=== PATIENT | female | born 1935 | race Two or more races ===

== ENCOUNTER 2019-02-04 13:19 | Inpatient (IN) | payer MEDICARE, OTHER ==
[~2019-02-04] VITALS: Ht 157.5 cm; Wt 72.6 kg
[2019-02-04 14:26] VITALS: BP 152/68
[2019-02-04] MEDS ORDERED: DIOVAN HCT 1601 EACH ORAL (14:41)
[2019-02-04] MEDS ORDERED: CAPTOPRIL25 M1 PO (14:41)
[2019-02-04] MEDS ORDERED: SINGULAIR10 MG ORAL (14:41)
[2019-02-04] MEDS ORDERED: ADVAIR 500-501 EACH INH (14:41)
[2019-02-04] MEDS ORDERED: ATORVASTATIN CA10 MG ORAL (14:41)
[2019-02-04] MEDS ORDERED: CLONAZEPAM1 MG PO (14:41)
[2019-02-04] MEDS ORDERED: NORVASC5 MG ORAL (14:41)
[2019-02-04] MEDS ORDERED: Captopril 12.5mg tab ORAL PRN (15:00)
[2019-02-04] MEDS: Albuterol/Ipratropium 3ml neb HHN SCH ×3 (15:41→23:50)
[2019-02-04 16:00] VITALS: BP 159/73
[2019-02-04] MEDS ORDERED: Fleet's Enema 133ml RECTAL SCH (16:00)
[2019-02-04] MEDS ORDERED: Captopril 25mg tab ORAL PRN (16:00)
[2019-02-04] MEDS: Montelukast 10mg tablet ORAL SCH ×2 (16:04→16:16)
--- NOTE | 2019-02-04 16:16 | NUR ---
NURSE NOTES: Patient refused to take Singulair after I opened the medication and prepared it. Medication wasted witnessed by Charge Nurse, Becka.
[2019-02-04] MEDS: NovoLOG Insulin Flexpen SUBQ SCH ×2 (16:30→20:47)
[2019-02-04] MEDS: cefTRIAXone 1 GM in D5W 55 ML IVPB SCH (16:30)
--- NOTE | 2019-02-04 16:39 | NUR ---
CASE MANAGEMENT: INITIAL REVIEW 83 YO F PRESENTED TO OUR ED PMHx: HTN. ASTHMA. HLD. SI:ASTHMA EXACERBATION. T 98.1 HR 68 RR 17 B/P 152/68 SATS 95% ON 2L/NC NO LABS TODAY IS: SOLU MEDROL IV Q12H LIPITOR PO QHS NORVASC PO BID PROTONIX IV QD KLONOPIN PO QD INSULIN ASPART SUBQ AC/HS CEFTRIAXONE IV Q24H SINGULAIR PO QPM MED/SURG STATUS DCP: PATIENT TO BE DISCHARGE TO APPROPRIATE LOCATION ONCE MEDICALLY CLEARED. PLAN OF CARE: CXR Addendum: 02/04/19 at 1745 by Mayuri Friedman CM INTERQUAL MET
--- NOTE | 2019-02-04 19:40 | NUR ---
HAND-OFF: Report given to LIBBY Santamaria.
--- NOTE | 2019-02-04 19:59 | NUR ---
NURSE NOTES: Received patient just coming out of the bathroom, helped back to bed, able to verbalize needs, no c/o of pain at this time, no s/s of acute distress. IV site asymptomatic, on saline lock. Bed on lowest position, call light within reach, 2 side rails up.
[2019-02-04 20:00] VITALS: BP 144/76
[2019-02-04 20:04] LABS: BASOPHILS % (AUTO) 0.4 % (0.0-2.0); EOSINOPHILS % (AUTO) 0.6 % (0.0-3.0); HEMATOCRIT 34.2 % (37.0-47.0); HEMOGLOBIN 11.4 G/DL (12.0-16.0); MEAN CORPUSCULAR VOLUME 88 FL (80-99); MONOCYTES % (AUTO) 8.3 % (1.0-10.0); NEUTROPHILS % (AUTO) 73.8 % (45.0-75.0); PLATELET COUNT 180 K/UL (150-450); RED CELL DISTRIBUTION WIDTH 12.9 % (11.6-14.8); WHITE BLOOD COUNT 6.6 K/UL (4.8-10.8)
[2019-02-04 20:20] LABS: ANION GAP 14 mmol/L (5-15); BLOOD UREA NITROGEN 15 mg/dL (7-18); CALCIUM 8.9 MG/DL (8.5-10.1); CARBON DIOXIDE 24 MMOL/L (21-32); CHLORIDE 94 MMOL/L (98-107); POTASSIUM 2.8 MMOL/L (3.5-5.1); SODIUM 132 MMOL/L (136-145)
[2019-02-04] MEDS: Zolpidem 5mg tab ORAL PRN ×2 (20:36→20:46)
[2019-02-04] MEDS: Heparin 5000 units/ml inj SUBQ SCH (20:46)
[2019-02-04] MEDS: Solu-MEDROL 125mg Inj IVP SCH (20:46)
[2019-02-04] MEDS: Wixela 250/50 Inhaler - 60 dose INH SCH (22:00)
[2019-02-05] MEDS: Albuterol/Ipratropium 3ml neb HHN SCH ×6 (02:58→23:03)
[2019-02-05] MEDS: NovoLOG Insulin Flexpen SUBQ SCH ×4 (06:00→20:49)
--- NOTE | 2019-02-05 07:21 | NUR ---
HAND-OFF: Report given to LIBBY Starr.
--- NOTE | 2019-02-05 07:23 | NUR ---
NURSE NOTES: Patient alert x4, on nasal cannula 2 liter, no sign of distress and shortness of breath; no sign of chest pain; IV-LAC patent, flushes well; bed at lowest position, side rials up x2, call light within reach; will keep monitoring.
--- NOTE | 2019-02-05 07:41 | NUR ---
NURSE NOTES: MD Burns notified patient's Na 132; waiting for order.
[2019-02-05 08:05] VITALS: BP 145/55
[2019-02-05] MEDS: Heparin 5000 units/ml inj SUBQ SCH ×2 (08:26→20:49)
[2019-02-05] MEDS: Solu-MEDROL 125mg Inj IVP SCH ×4 (08:31→20:56)
[2019-02-05] MEDS: Pantoprazole Inj IVP SCH (08:31)
[2019-02-05] MEDS: Wixela 250/50 Inhaler - 60 dose INH SCH ×2 (10:08→22:00)
[2019-02-05 12:00] VITALS: BP 116/55
--- NOTE | 2019-02-05 15:01 | History and Physical Report ---
DATE OF ADMISSION: 02/04/2019 REASON FOR ADMISSION: Shortness of breath, asthma exacerbation, respiratory infection. HISTORY: This is an 83-year-old female, presented to my office with shortness of breath, difficulty with breathing. The patient was given Decadron and albuterol in the office as well the chest x-ray, but did not improve. The patient now admitted for IV antibiotics and further respiratory management. The patient with cough, difficult to mobilize, congestion over the past several days. The patient refusing any type of IV steroids at this time due to concern of elevation in sugar. The patient's events worsening overall. Low-grade fevers noted. No ill contacts noted. PAST MEDICAL HISTORY: Notable for hypertension, asthma, hypercholesterolemia, advanced age, chronic cough, chronic debility, osteoporosis. MEDICATIONS: Reviewed. ALLERGIES: Reviewed. SOCIAL HISTORY: Nonsmoker and nondrinker. The patient does have a caregiver. REVIEW OF SYSTEMS: All 10 points reviewed. The patient is using walker and she is at risk for falling. No other significant findings with the exception of the above. PHYSICAL EXAMINATION: GENERAL: A well-developed female, comfortable, alert. VITAL SIGNS: Blood pressure 145/55, pulse 86, respirations 14, sats 99%. HEENT: Fairly negative. Extraocular movements are grossly intact. NECK: Supple. LUNGS: With moderate breath sounds. Scattered wheezes and rhonchi. CARDIAC: S1 and S2. Regular rate and rhythm without murmurs, rubs, gallops. ABDOMEN: Soft, nontender, nondistended. EXTREMITIES: With trace edema. No cyanosis or clubbing. NEUROLOGICAL: Grossly the same. LABORATORY DATA: Reviewed. Sodium 132, potassium 2.8. Hemoglobin A1c 6.3. Blood sugar is 120. White count 6.6, hematocrit 34, platelets of 180. IMPRESSION: 1. Respiratory infection, underlying bronchitis. No clear evidence of pneumonia. 2. Acute bronchospasm. 3. Asthma. 4. Hypertension. 5. Borderline diabetes. RECOMMENDATIONS: 1. Supportive care. 2. IV antibiotics. 3. Refusing IV steroids. 4. Oxygen therapy as needed. 5. We will follow and optimize and discharge the patient when stable. Mayur Burns M.D. DR: MASON JOB#: [id number] CC:
[2019-02-05 16:00] VITALS: BP 163/69
[2019-02-05] MEDS: Montelukast 10mg tablet ORAL SCH (17:04)
[2019-02-05] MEDS: cefTRIAXone 1 GM in D5W 55 ML IVPB SCH (17:04)
--- NOTE | 2019-02-05 19:37 | NUR ---
HAND-OFF: Report given to LIBBY Mccarthy.
--- NOTE | 2019-02-05 19:38 | NUR ---
NURSE NOTES: Received patient in no apparent distress. A&OX4, forgetful. IV site patent and intact. Bed in lowest position. Call light within reach. Will continue to monitor.
[2019-02-05 20:00] VITALS: BP 165/88
[2019-02-05] MEDS: Zolpidem 5mg tab ORAL PRN (20:47)
[2019-02-05] MEDS: Milk of Magnesia 30ml Ud ORAL PRN (20:47)
[2019-02-06] MEDS: Albuterol/Ipratropium 3ml neb HHN SCH ×6 (03:00→23:16)
[2019-02-06] MEDS: NovoLOG Insulin Flexpen SUBQ SCH ×4 (06:30→20:11)
--- NOTE | 2019-02-06 07:30 | NUR ---
HAND-OFF: Report given to Mani SOUZA.
[2019-02-06 08:00] VITALS: BP 125/69
--- NOTE | 2019-02-06 08:30 | NUR ---
NURSE NOTES: Received patient in bed , no sign respiratory distress. patient AOX3, ambulatory using a walker. IV site patent and intact. Bed in lowest position. Call light within reach. Will continue to monitor. benson matthew
[2019-02-06] MEDS: Wixela 250/50 Inhaler - 60 dose INH SCH ×2 (08:54→20:24)
[2019-02-06] MEDS: Solu-MEDROL 125mg Inj IVP SCH ×2 (09:00→19:46)
[2019-02-06] MEDS: Pantoprazole Inj IVP SCH (09:25)
[2019-02-06] MEDS: Heparin 5000 units/ml inj SUBQ SCH ×2 (09:29→21:20)
--- NOTE | 2019-02-06 10:30 | NUR ---
RADIOLOGY DEPT CHEST X-RAY DONE.-P.DYE
[2019-02-06] MEDS: Guaifenesin/DM 10ml syrup ORAL PRN (10:38)
--- NOTE | 2019-02-06 10:47 | Diagnostic Imaging Report ---
Indication: Shortness of breath Technique: One view of the chest Comparison: none Findings: No acute infiltrates, effusions, or congestion. Tortuous calcified aorta. Normal heart size. Upper mediastinum unremarkable. No significant interim change Impression: No acute process.
[2019-02-06 12:00] VITALS: BP 121/63
[2019-02-06 15:53] VITALS: BP 175/67
[2019-02-06] MEDS: Montelukast 10mg tablet ORAL SCH (16:31)
[2019-02-06] MEDS: cefTRIAXone 1 GM in D5W 55 ML IVPB SCH (16:31)
--- NOTE | 2019-02-06 17:14 | Physician Query ---
--THIS DOCUMENT IS A PERMANENT PART OF THE MEDICAL RECORD -- PLEASE COMPLETE DOCUMENT BEFORE SIGNING Dear Dr. 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 Physician signature Date MTDD
--- NOTE | 2019-02-06 17:49 | General Progress Note ---
Assessment/Plan Assessment/Plan IMPRESSION: 1. Respiratory infection, underlying bronchitis. No clear evidence of pneumonia. 2. Acute bronchospasm. 3. Asthma. 4. Hypertension. 5. Borderline diabetes. PLAN cxr negative still refusing solumedrol wants only antibiotics continue same will follow up impression, plan, and exam edited and reviewed in detail care discussed with RN Subjective Allergies: Coded Allergies: NO KNOWN ALLERGIES (Verified Allergy, Unknown, 02/04/19) Subjective still with sob refusing solumedrol Objective Last 24 Hour Vital Signs Date Time Temp Pulse Resp B/P (MAP) Pulse Ox O2 Delivery O2 Flow Rate FiO2 02/06/19 17:30 83 175/67 02/06/19 15:53 97.7 83 20 175/67 (103) 99 02/06/19 15:48 84 20 99 Room Air 21 02/06/19 15:40 88 20 98 Room Air 21 02/06/19 12:00 97.0 81 20 121/63 (82) 99 02/06/19 11:28 Room Air 21 02/06/19 11:28 Room Air 21 02/06/19 09:25 87 125/69 02/06/19 08:56 87 20 99 Room Air 21 02/06/19 08:54 Room Air 21 02/06/19 08:54 Room Air 21 02/06/19 08:50 84 14 99 Room Air 21 02/06/19 08:30 Nasal Cannula 2.0 02/06/19 08:00 96.8 82 20 125/69 (87) 99 02/06/19 07:14 Room Air 02/06/19 07:14 Room Air 21 02/06/19 04:00 19 02/06/19 03:09 Room Air 02/06/19 03:09 Room Air 02/06/19 00:00 19 02/05/19 23:08 90 18 98 Room Air 21 02/05/19 23:01 88 18 96 Room Air 21 02/05/19 22:09 Room Air 02/05/19 22:07 Room Air 02/05/19 21:00 Nasal Cannula 2.0 02/05/19 20:36 88 18 98 Room Air 21 02/05/19 20:15 91 20 97 Room Air 21 02/05/19 20:00 97.6 106 20 165/88 (113) 99 Intake and Output 02/05/19 02/06/19 19:00 07:00 Intake Total 250 ml 480 ml Output Total 100 ml Balance 150 ml 480 ml Intake Oral 250 ml 480 ml Output Urine Total 100 ml # Voids 4 3 Height (Feet): 5 Height (Inches): 2.00 Weight (Pounds): 160 Objective GENERAL: A well-developed female, comfortable, alert. HEENT: Fairly negative. Extraocular movements are grossly intact. NECK: Supple. LUNGS: With moderate breath sounds. Scattered wheezes and rhonchi. CARDIAC: S1 and S2. Regular rate and rhythm without murmurs, rubs, gallops. ABDOMEN: Soft, nontender, nondistended. EXTREMITIES: With trace edema. No cyanosis or clubbing. NEUROLOGICAL: Grossly the same. Mayur Burns MD Feb 06, 2019 17:49
--- NOTE | 2019-02-06 19:32 | NUR ---
HAND-OFF: Report given to Ms. Christiano RN.
[2019-02-06 20:09] VITALS: BP 148/64
[2019-02-06] MEDS: Zolpidem 5mg tab ORAL PRN (21:19)
[2019-02-06] MEDS: Milk of Magnesia 30ml Ud ORAL PRN (21:19)
--- NOTE | 2019-02-06 22:53 | NUR ---
NURSE NOTES: PATIENT REFUSED ACCUCHECK AND NOVOLOG. PATIENT ALSO REQUESTED TO NOT BE DISTURBED UNTIL 0700. SIGN POSTED ON DOOR.
--- NOTE | 2019-02-06 22:54 | NUR ---
NURSE NOTES: patient in bed, alert, verbally responsive. No s/s of respiratory distress. No complaints of pain at this time. IV site in place. Bed in lowest position. Call light within reach. Will continue to monitor.
[2019-02-06 23:47] VITALS: BP 146/76
[2019-02-07] MEDS: Albuterol/Ipratropium 3ml neb HHN SCH ×6 (03:46→23:36)
[2019-02-07] MEDS: NovoLOG Insulin Flexpen SUBQ SCH ×4 (05:33→20:23)
--- NOTE | 2019-02-07 07:36 | NUR ---
HAND-OFF: Report given to CLEMENCIA GOTTI RN.
[2019-02-07 08:00] VITALS: BP 107/86
[2019-02-07] MEDS: Solu-MEDROL 125mg Inj IVP SCH ×2 (08:30→20:23)
[2019-02-07] MEDS: Pantoprazole Inj IVP SCH (08:31)
[2019-02-07] MEDS: Guaifenesin/DM 10ml syrup ORAL PRN ×2 (08:31→15:13)
[2019-02-07] MEDS: Heparin 5000 units/ml inj SUBQ SCH ×2 (08:40→20:28)
[2019-02-07] MEDS: Wixela 250/50 Inhaler - 60 dose INH SCH ×2 (10:00→20:05)
--- NOTE | 2019-02-07 11:21 | General Progress Note ---
Assessment/Plan Problem List: (1) Asthma exacerbation ICD Codes: J45.901 - Unspecified asthma with (acute) exacerbation SNOMED: 347742967 Status: stable, progressing Assessment/Plan resp rx steroids compliance stressed abx repeat labs Subjective ROS Limited/Unobtainable: No Constitutional: Reports: malaise, weakness HEENT: Reports: no symptoms Cardiovascular: Reports: no symptoms Respiratory: Reports: cough Gastrointestinal/Abdominal: Reports: no symptoms Genitourinary: Reports: no symptoms Neurologic/Psychiatric: Reports: no symptoms Endocrine: Reports: no symptoms Hematologic/Lymphatic: Reports: no symptoms Allergies: Coded Allergies: NO KNOWN ALLERGIES (Verified Allergy, Unknown, 02/04/19) All Systems: reviewed and negative except above Subjective feels better. decreased sob. +cough. refusing steroids Objective Last 24 Hour Vital Signs Date Time Temp Pulse Resp B/P (MAP) Pulse Ox O2 Delivery O2 Flow Rate FiO2 02/07/19 11:11 77 20 99 Room Air 21 02/07/19 11:00 75 18 96 Room Air 21 02/07/19 10:47 Room Air 21 02/07/19 10:46 Room Air 21 02/07/19 09:00 Nasal Cannula 2.0 02/07/19 08:31 80 107/86 02/07/19 08:00 98.2 80 18 107/86 (93) 96 02/07/19 07:58 85 20 99 Room Air 21 02/07/19 07:49 98 18 80 Room Air 21 02/07/19 03:46 Room Air 21 02/07/19 03:46 Room Air 21 02/06/19 23:47 97.8 95 20 146/76 (99) 95 02/06/19 23:24 72 20 99 Room Air 21 02/06/19 23:16 96 20 95 Room Air 21 02/06/19 22:29 Nasal Cannula 2.0 02/06/19 20:32 80 18 97 Room Air 21 02/06/19 20:24 78 20 96 Room Air 21 02/06/19 20:24 Room Air 21 02/06/19 20:24 Room Air 21 02/06/19 20:09 97.8 85 20 148/64 (92) 95 02/06/19 17:30 83 175/67 02/06/19 15:53 97.7 83 20 175/67 (103) 99 02/06/19 15:48 84 20 99 Room Air 21 02/06/19 15:40 88 20 98 Room Air 21 02/06/19 12:00 97.0 81 20 121/63 (82) 99 02/06/19 11:28 Room Air 21 02/06/19 11:28 Room Air 21 Intake and Output 02/06/19 02/07/19 19:00 07:00 Intake Total 705 ml Balance 705 ml Intake Oral 650 ml IV Total 55 ml # Voids 3 4 Height (Feet): 5 Height (Inches): 2.00 Weight (Pounds): 160 General Appearance: WD/WN, alert Cardiovascular: regular rhythm Respiratory/Chest: rhonchi - bilaterally, expiratory wheezing Abdomen: normal bowel sounds, non tender, soft, no organomegaly Edema: no edema noted Arm (L), no edema noted Arm (R), no edema noted Leg (L), no edema noted Leg (R), no edema noted Pedal (L), no edema noted Pedal (R), no edema noted Generalized José Manuel Sena MD Feb 07, 2019 11:21
[2019-02-07 12:00] VITALS: BP 108/59
[2019-02-07 12:51] LABS: ALANINE AMINOTRANSFERASE 90 U/L (12-78); ALBUMIN/GLOBULIN RATIO 0.9 (1.0-2.7); ALKALINE PHOSPHATASE 98 U/L (46-116); ANION GAP 8 mmol/L (5-15); ASPARTATE AMINO TRANSFERASE 44 U/L (15-37); BILIRUBIN,TOTAL 0.2 MG/DL (0.2-1.0); BLOOD UREA NITROGEN 21 mg/dL (7-18); CALCIUM 8.7 MG/DL (8.5-10.1); CARBON DIOXIDE 27 MMOL/L (21-32); CHLORIDE 99 MMOL/L (98-107); CREATININE 0.8 MG/DL (0.55-1.30); POTASSIUM 3.7 MMOL/L (3.5-5.1); SODIUM 134 MMOL/L (136-145)
--- NOTE | 2019-02-07 15:41 | NUR ---
CASE MANAGEMENT: REVIEW SI: ASTHMA EXACERBATION T 98.2 HR 82 RR 22 BP 108/59 SAT 96% NC/2L IS: SOLU MEDROL IV Q12HR CEFTRIAXONE IV Q24HR ALBUTEROL HHN Q4HR MED/SURG STATUS DCP: PATIENT IS FROM HOME
[2019-02-07 16:00] VITALS: BP 158/65
--- NOTE | 2019-02-07 16:00 | NUR ---
NURSE NOTES: RN LEFT MESSAGE FOR DR BLANCA (COVERING FOR DR ORTEGA) REGARDING ABNORMAL LAB LEVELS. NO CALL BACK.
[2019-02-07] MEDS: cefTRIAXone 1 GM in D5W 55 ML IVPB SCH (17:05)
[2019-02-07] MEDS: Montelukast 10mg tablet ORAL SCH (17:05)
--- NOTE | 2019-02-07 19:19 | Pulmonology Progress Note ---
Assessment/Plan Assessment/Plan Pulmonary Progress Note Assessment/Plan IMPRESSION: 1. Respiratory infection, underlying bronchitis. No clear evidence of pneumonia. 2. Acute bronchospasm. 3. Asthma. 4. Hypertension. 5. Borderline diabetes. Less SOB PLAN cxr negative still refusing solumedrol wants only antibiotics continue same will follow up impression, plan, and exam edited and reviewed in detail care discussed with RN Subjective Allergies: Coded Allergies: NO KNOWN ALLERGIES (Verified Allergy, Unknown, 02/04/19) Subjective still with sob refusing solumedrol Objective Vital Signs Noted Height (Feet): 5 Height (Inches): 2.00 Weight (Pounds): 160 Objective GENERAL: A well-developed female, comfortable, alert. HEENT: Fairly negative. Extraocular movements are grossly intact. NECK: Supple. LUNGS: With moderate breath sounds. Scattered wheezes and rhonchi. CARDIAC: S1 and S2. Regular rate and rhythm without murmurs, rubs, gallops. ABDOMEN: Soft, nontender, nondistended. EXTREMITIES: With trace edema. No cyanosis or clubbing. NEUROLOGICAL: Grossly the same. Subjective ROS Limited/Unobtainable: No Allergies: Coded Allergies: NO KNOWN ALLERGIES (Verified Allergy, Unknown, 02/04/19) Objective Last 24 Hour Vital Signs Date Time Temp Pulse Resp B/P (MAP) Pulse Ox O2 Delivery O2 Flow Rate FiO2 02/07/19 18:16 84 158/65 02/07/19 16:00 98.4 84 18 158/65 (96) 93 02/07/19 15:25 85 20 100 Room Air 21 02/07/19 15:15 86 18 97 Room Air 21 02/07/19 12:00 98.2 82 22 108/59 (75) 98 02/07/19 11:11 77 20 99 Room Air 21 02/07/19 11:00 75 18 96 Room Air 21 02/07/19 10:47 Room Air 21 02/07/19 10:46 Room Air 21 02/07/19 09:00 Nasal Cannula 2.0 02/07/19 08:31 80 107/86 02/07/19 08:00 98.2 80 18 107/86 (93) 96 02/07/19 07:58 85 20 99 Room Air 21 02/07/19 07:49 98 18 80 Room Air 21 02/07/19 03:46 Room Air 21 02/07/19 03:46 Room Air 21 02/06/19 23:47 97.8 95 20 146/76 (99) 95 02/06/19 23:24 72 20 99 Room Air 21 02/06/19 23:16 96 20 95 Room Air 21 02/06/19 22:29 Nasal Cannula 2.0 02/06/19 20:32 80 18 97 Room Air 21 02/06/19 20:24 78 20 96 Room Air 21 02/06/19 20:24 Room Air 21 02/06/19 20:24 Room Air 21 02/06/19 20:09 97.8 85 20 148/64 (92) 95 Intake and Output 02/06/19 02/07/19 19:00 07:00 Intake Total 705 ml Balance 705 ml Intake Oral 650 ml IV Total 55 ml # Voids 3 4 Laboratory Tests 02/07/19 12:14: Sodium Level 134L, Potassium Level 3.7, Chloride Level 99, Carbon Dioxide Level 27, Anion Gap 8, Blood Urea Nitrogen 21H, Creatinine 0.8, Estimat Glomerular Filtration Rate , Glucose Level 101, Calcium Level 8.7, Magnesium Level 1.9, Total Bilirubin 0.2, Aspartate Amino Transf (AST/SGOT) 44H, Alanine Aminotransferase (ALT/SGPT) 90H, Alkaline Phosphatase 98, Total Protein 6.4, Albumin 3.0L, Globulin 3.4, Albumin/Globulin Ratio 0.9L Current Medications Medications (Trade) Dose Ordered Sig/Ammy Route PRN Reason Start Time Stop Time Status Last Admin Dose Admin Acetaminophen (Tylenol) 650 mg Q4H PRN ORAL Mild Pain/Temp > 100.5 02/04/19 15:00 03/06/19 14:59 Albuterol/ Ipratropium (Albuterol/ Ipratropium) 3 ml Q4HRT HHN 02/04/19 16:00 02/09/19 15:59 02/07/19 15:15 Amlodipine Besylate (Norvasc) 5 mg BID ORAL 02/04/19 18:00 03/06/19 17:59 02/07/19 18:16 Atorvastatin Calcium (Lipitor) 10 mg BEDTIME ORAL 02/04/19 21:00 03/06/19 20:59 02/06/19 21:19 Captopril (Capoten) 12.5 mg Q8H PRN ORAL SBP > 180mmHg 02/04/19 16:00 03/06/19 14:59 Ceftriaxone Sodium 1 gm/ Dextrose 55 ml @ 110 mls/hr Q24H IVPB 02/04/19 17:00 02/11/19 16:59 02/07/19 17:05 Clonazepam (KlonoPIN) 1 mg DAILY ORAL 02/05/19 09:00 02/12/19 08:59 02/07/19 08:31 Dextrose (Dextrose 50%) 25 ml Q30M PRN IV Hypoglycemia 02/05/19 10:00 03/07/19 09:59 Dextrose (Dextrose 50%) 50 ml Q30M PRN IV Hypoglycemia 02/05/19 10:00 03/07/19 09:59 Guaifenesin/ Dextromethorphan (Robitussin DM Syrup) 10 ml Q4H PRN ORAL For Cough 02/06/19 10:15 03/08/19 10:14 02/07/19 15:13 Heparin Sodium (Porcine) (Heparin 5000 units/ml) 5,000 units EVERY 12 HOURS SUBQ 02/04/19 21:00 03/06/19 20:59 02/07/19 08:40 Insulin Aspart (NovoLOG) BEFORE MEALS AND HS SUBQ 02/05/19 11:30 03/07/19 11:29 02/05/19 12:18 Magnesium Hydroxide (Mom) 30 ml DAILYPRN PRN ORAL Constipation 02/04/19 15:00 03/06/19 14:59 02/06/19 21:19 Methylprednisolone Sodium Succinate (Solu-MEDROL) 60 mg EVERY 12 HOURS IVP 02/04/19 21:00 03/06/19 20:59 02/05/19 09:40 Montelukast Sodium (Singulair) 10 mg QPM ORAL 02/04/19 16:30 03/06/19 16:29 02/07/19 17:05 Pantoprazole (Protonix) 40 mg DAILY IVP 02/05/19 09:00 03/07/19 08:59 02/07/19 08:31 Salmeterol Xinafoate/ Fluticasone (Advair 250/50 Diskus) 1 puffs BIDRT INH 02/04/19 22:00 03/06/19 21:59 02/05/19 10:08 Zolpidem Tartrate (Ambien) 5 mg HSPRN PRN ORAL Insomnia 02/04/19 21:00 02/11/19 20:59 02/06/19 21:19 Mani Drake MD Feb 07, 2019 19:19
--- NOTE | 2019-02-07 19:38 | NUR ---
HAND-OFF: Report given to Molly MENCHACA RN.
--- NOTE | 2019-02-07 19:52 | NUR ---
NURSE NOTES: Received patient awake in bed, able to verbalize needs, no c/o pain at this time. IV site patent, dressing reinforced. Bed on lowest position, 2 side rails up. call light and belongings within reach.
[2019-02-07 20:00] VITALS: BP 138/55
[2019-02-07] MEDS: Zolpidem 5mg tab ORAL PRN (20:27)
--- NOTE | 2019-02-07 21:00 | Cardiology Progress Note ---
Subjective Subjective [id number] Objective Last 24 Hour Vital Signs Date Time Temp Pulse Resp B/P (MAP) Pulse Ox O2 Delivery O2 Flow Rate FiO2 02/07/19 20:15 67 20 98 Room Air 21 02/07/19 20:05 Room Air 21 02/07/19 20:05 73 20 94 Room Air 21 02/07/19 20:05 Room Air 21 02/07/19 18:16 84 158/65 02/07/19 16:00 98.4 84 18 158/65 (96) 93 02/07/19 15:25 85 20 100 Room Air 21 02/07/19 15:15 86 18 97 Room Air 21 02/07/19 12:00 98.2 82 22 108/59 (75) 98 02/07/19 11:11 77 20 99 Room Air 02/07/19 11:00 75 18 96 Room Air 21 02/07/19 10:47 Room Air 02/07/19 10:46 Room Air 02/07/19 09:00 Nasal Cannula 2.0 02/07/19 08:31 80 107/86 02/07/19 08:00 98.2 80 18 107/86 (93) 96 02/07/19 07:58 85 20 99 Room Air 02/07/19 07:49 98 18 80 Room Air 02/07/19 03:46 Room Air 21 02/07/19 03:46 Room Air 21 02/06/19 23:47 97.8 95 20 146/76 (99) 95 02/06/19 23:24 72 20 99 Room Air 02/06/19 23:16 96 20 95 Room Air 02/06/19 22:29 Nasal Cannula 2.0 Intake and Output 02/06/19 02/07/19 19:00 07:00 Intake Total 705 ml Balance 705 ml Intake Oral 650 ml IV Total 55 ml # Voids 3 4 Laboratory Tests Test 02/07/19 12:14 Sodium Level 134 MMOL/L (136-145) L Potassium Level 3.7 MMOL/L (3.5-5.1) Chloride Level 99 MMOL/L (98-107) Carbon Dioxide Level 27 MMOL/L (21-32) Anion Gap 8 mmol/L (5-15) Blood Urea Nitrogen 21 mg/dL (7-18) H Creatinine 0.8 MG/DL (0.55-1.30) Estimat Glomerular Filtration Rate mL/min (>60) Glucose Level 101 MG/DL (74-106) Calcium Level 8.7 MG/DL (8.5-10.1) Magnesium Level 1.9 MG/DL (1.8-2.4) Total Bilirubin 0.2 MG/DL (0.2-1.0) Aspartate Amino Transf (AST/SGOT) 44 U/L (15-37) H Alanine Aminotransferase (ALT/SGPT) 90 U/L (12-78) H Alkaline Phosphatase 98 U/L (46-116) Total Protein 6.4 G/DL (6.4-8.2) Albumin 3.0 G/DL (3.4-5.0) L Globulin 3.4 g/dL Albumin/Globulin Ratio 0.9 (1.0-2.7) L Moni Sweeney MD Feb 07, 2019 21:00
--- NOTE | 2019-02-07 23:32 | Consultation ---
DATE OF CONSULTATION: 02/06/2019 CARDIOLOGY CONSULTATION CONSULTING PHYSICIAN: Moni Sweeney M.D. ADMITTING PHYSICIAN: Mayur Burns M.D. REASON FOR EVALUATION: Hypertension and chest pain. HISTORY OF PRESENT ILLNESS: This is a very pleasant 83-year-old female, who developed severe cough and shortness of breath approximately 3 weeks ago and she was admitted to the hospital with cough. Her initial workup revealed some bronchospasm without evidence of pneumonia. She was started on antibiotics, steroids, and inhalers, although she declined injection of steroid. PAST MEDICAL HISTORY: Significant for hypertension, arthritis, low back pain, and anemia. She also has nonspecific left-sided chest pain. MEDICATIONS: Prior to admission, she was on amlodipine, atorvastatin, captopril, clonazepam, and valsartan. ALLERGIES: Not reported. HABITS: There is no history of drinking, smoking, or drug abuse. SOCIAL HISTORY: She lives at home. She is partially dependent due to gait instability. REVIEW OF SYSTEMS: Significant for significant cough and discomfort at night prior to admission. Now, she feels much better although she still has severe cough with mucus production. There is no fever or chills. There is no syncope. No palpitations. PHYSICAL EXAMINATION: GENERAL: The patient is comfortable. VITAL SIGNS: Her blood pressure is somewhat elevated to 150/65 with mean 96. Her heart rate is 80. Her oxygen saturation on room air is 97%. Her temperature is normal. HEENT: PERRLA. EOMI. NECK: Supple. Jugular venous pressure is not elevated. She has normal carotid upstroke bilaterally with the bruit on the left. LUNGS: She has scattered rales and some wheezing anteriorly. No crackles. HEART: Regular with distant S1 and accented A2. PMI is not palpable. BREAST: To degree evaluated, there is no lumps. ABDOMEN: Obese, soft, and nontender. EXTREMITIES: Lower extremity 1+ edema and distal pulses palpable. NEUROLOGICAL: She is intact. IMAGING: Chest x-ray showed no pneumonia. LABORATORY DATA: Significant for potassium 2.8 and hemoglobin A1c 6.3. She has hemoglobin 11.4 and platelets 180,000. IMPRESSION AND RECOMMENDATION: The patient with bronchitis and bronchospasm, unclear if it is viral etiology or is bacterial. She is on antibiotics and her cardiac status is stable. If she continues to have chest pain, we might consider outpatient workup including stress test. Thank you very much for your consultation. Moni Sweeney M.D. DR: RAÚL JOB#: [id number] CC:
[2019-02-08] MEDS: Albuterol/Ipratropium 3ml neb HHN SCH ×3 (03:41→11:24)
[2019-02-08] MEDS: NovoLOG Insulin Flexpen SUBQ SCH ×2 (06:21→11:30)
--- NOTE | 2019-02-08 07:14 | NUR ---
HAND-OFF: Report given to LIBBY Jovel.
--- NOTE | 2019-02-08 07:35 | NUR ---
NURSE NOTES: Received patient on bed, resting and alert X4. Patient denies pain. Cough noted. Patient verbalized she is leaving today. Explained no dc order yet but will discuss plan with medical team. Patient verbalized understanding. Bed in lowest position, call light within reach. No signs of respiratory distress. Will continue to monitor.
[2019-02-08 08:00] VITALS: BP 149/85
[2019-02-08] MEDS: Solu-MEDROL 125mg Inj IVP SCH (09:00)
[2019-02-08] MEDS: Pantoprazole Inj IVP SCH (09:23)
[2019-02-08] MEDS: Heparin 5000 units/ml inj SUBQ SCH (09:25)
[2019-02-08] MEDS: Guaifenesin/DM 10ml syrup ORAL PRN (09:27)
[2019-02-08] MEDS: Wixela 250/50 Inhaler - 60 dose INH SCH (10:00)
--- NOTE | 2019-02-08 10:27 | NUR ---
NURSE NOTES: PER DR. BLANCA, HE IS DISCHARGING PATIENT BACK HOME TODAY. RX LEFT IN CHART. ASKED IF IV ABX CAN BE GIVEN EARLIER PRIOR TO DC. STATED OK TO ADMINISTER EARLIER. WILL CONTINUE TO MONITOR.
[2019-02-08] MEDS ORDERED: ROBITUSSIN COU237 M2 PO (11:04)
[2019-02-08] MEDS ORDERED: PREDNISONE10 M2 PO (11:05)
[2019-02-08] MEDS ORDERED: LEVAQUIN500 MG ORAL (11:05)
--- NOTE | 2019-02-08 11:36 | NUR ---
NURSE NOTES: LEFT MESSAGE TO THO, PATIENT'S SON, REGARDING DISCHARGE. AWAITING CALL BACK. PATIENT STATED SHE WILL CONTACT WELL.
--- NOTE | 2019-02-08 11:55 | General Progress Note ---
Assessment/Plan Problem List: (1) Asthma exacerbation ICD Codes: J45.901 - Unspecified asthma with (acute) exacerbation SNOMED: 277001780 Status: stable, progressing Assessment/Plan resp rx steroids compliance stressed abx dc planning on po abx and steroid sushant Subjective ROS Limited/Unobtainable: No Constitutional: Reports: malaise, weakness HEENT: Reports: no symptoms Cardiovascular: Reports: no symptoms Respiratory: Reports: cough Gastrointestinal/Abdominal: Reports: no symptoms Genitourinary: Reports: no symptoms Neurologic/Psychiatric: Reports: no symptoms Endocrine: Reports: no symptoms Hematologic/Lymphatic: Reports: no symptoms Allergies: Coded Allergies: NO KNOWN ALLERGIES (Verified Allergy, Unknown, 02/04/19) All Systems: reviewed and negative except above Subjective feels better. decreased sob. +cough. refusing steroids feels "much better" and wants to go home Objective Last 24 Hour Vital Signs Date Time Temp Pulse Resp B/P (MAP) Pulse Ox O2 Delivery O2 Flow Rate FiO2 02/08/19 11:33 75 18 99 Room Air 02/08/19 11:24 74 18 94 Room Air 21 02/08/19 10:00 Room Air 21 02/08/19 10:00 Room Air 02/08/19 09:22 91 149/85 02/08/19 09:00 Room Air 02/08/19 08:00 97.9 91 20 149/85 (106) 96 02/08/19 07:38 72 17 99 Room Air 21 02/08/19 07:28 72 15 97 Room Air 21 02/08/19 03:41 Room Air 21 02/08/19 03:41 Room Air 21 02/07/19 23:36 Room Air 21 02/07/19 23:36 Room Air 21 02/07/19 21:00 Nasal Cannula 2.0 02/07/19 20:15 67 20 98 Room Air 21 02/07/19 20:05 Room Air 21 02/07/19 20:05 73 20 94 Room Air 21 02/07/19 20:05 Room Air 21 02/07/19 20:00 98.0 75 18 138/55 (82) 95 02/07/19 18:16 84 158/65 02/07/19 16:00 98.4 84 18 158/65 (96) 93 02/07/19 15:25 85 20 100 Room Air 21 02/07/19 15:15 86 18 97 Room Air 21 02/07/19 12:00 98.2 82 22 108/59 (75) 98 Intake and Output 02/07/19 02/08/19 19:00 07:00 Intake Total 655 ml 300 ml Balance 655 ml 300 ml Intake Oral 300 ml IV Total 55 ml Other 600 ml # Voids 2 Laboratory Tests 02/07/19 12:14: Sodium Level 134L, Potassium Level 3.7, Chloride Level 99, Carbon Dioxide Level 27, Anion Gap 8, Blood Urea Nitrogen 21H, Creatinine 0.8, Estimat Glomerular Filtration Rate , Glucose Level 101, Calcium Level 8.7, Magnesium Level 1.9, Total Bilirubin 0.2, Aspartate Amino Transf (AST/SGOT) 44H, Alanine Aminotransferase (ALT/SGPT) 90H, Alkaline Phosphatase 98, Total Protein 6.4, Albumin 3.0L, Globulin 3.4, Albumin/Globulin Ratio 0.9L Height (Feet): 5 Height (Inches): 2.00 Weight (Pounds): 160 General Appearance: WD/WN Neck: supple Cardiovascular: normal rate Respiratory/Chest: lungs clear, normal breath sounds, no respiratory distress, no accessory muscle use Abdomen: normal bowel sounds, non tender, soft, no organomegaly Edema: no edema noted Arm (L), no edema noted Arm (R), no edema noted Leg (L), no edema noted Leg (R), no edema noted Pedal (L), no edema noted Pedal (R), no edema noted Generalized José Manuel Sena MD Feb 08, 2019 11:55
[2019-02-08 12:00] VITALS: BP 157/83
[2019-02-08] MEDS: cefTRIAXone 1 GM in D5W 55 ML IVPB SCH (12:11)
--- NOTE | 2019-02-08 13:00 | NUR ---
NURSE NOTES: Patient discharged home with son Joel. IV and ID band removed. Discharge packet given to patient. Educated on how to take levaquin tablets and indication for robitussin DM. Patient to follow up with Dr. Burns in 1-2 weeks. RX given to patient. Also faxed to patients pharmacy. Patient discharged in stable condition.
--- NOTE | 2019-02-10 10:09 | Discharge Summary ---
Discharge Summary Discharge Summary _ DATE OF ADMISSION: 02/04/2019 DATE OF DISCHARGE: 02/08/2019 DISCHARGED BY: Dr. Burns REASON FOR ADMISSION: 83 years old female with past medical history of hypertension, asthma, hypercholesterolemia, osteoporosis, borderline diabetes, chronic cough, chronic debility, advanced age, presented to the office initially with shortness of breath and difficulty breathing. The patient was given Decadron and albuterol at the office , but patient did not improve. Patient reported cough , difficulty breathing and congestion for past several days. Patient was refusing any type of IV steroids at this time due to concern of elevation in blood sugar. Patient was subsequently admitted for IV antibiotics and further respiratory management. Upon admission patient had no leukocytosis, mild anemia with hemoglobin 11.4 , hematocrit 34.2 Potassium was 2.8, sodium 132. Glucose 120 Patient admitted directly to medical surgical floor for further management CONSULTANTS: community associate Dr. Sweeney [facility] COURSE: Patient admitted to medical surgical floor. Supplemental oxygen provided as needed to keep pulse oximetry above 92%. Pulmonary toilet provided with bronchodilator. Patient started on IV antibiotic. Patient initially was refusing steroids. Antitussive provided as needed. Patient started on inhaler / Advair. Patient started on Singulair. Patient finally agreed to steroids. Chest x-ray demonstrated no acute process. Renal parameters and electrolytes were closely monitored, and electrolytes/ potassium corrected as needed. Potassium stabilized , after replacement 3.7 , sodium 134. GI prophylaxis provided. Nephrotoxins were avoided. Blood sugar was managed with sliding scale of insulin. [id number]. Patient was educated on no concentrated sweets diet Statin was continued. Blood pressure was managed with calcium channel rafal and THIAGO inhibitor , remained stable. [employer] seen and evaluated patient. Per community associate, cardiac status was stable. No further cardiac workup in the hospital was required. Patient was counseled on compliance with medication regimen at home. Patient was stabilized. No further shortness of breath. Pulse oximetry was stable on room air. Patient was discharged on short course of oral steroids to complete treatment at home. FINAL DIAGNOSES: Acute bronchospasm Asthma exacerbation Underlying bronchitis Borderline diabetes Hypertension Hypokalemia DISCHARGE MEDICATIONS: See Medication Reconciliation list. DISCHARGE INSTRUCTIONS: Patient was discharged home. Follow up with primary care provider in one week. I have been assigned to dictate discharge summary for this account. I was not involved in the patient's management. Patti Rodriguez NP Feb 10, 2019 10:09
== END 2019-02-08 13:06 | disposition home or self-care (01) | DRG 202 ==
LOC: 3E 13:34 → 4E 13:44
DX: J20.9 Acute bronchitis, unspecified (principal); E87.1 Hypo-osmolality and hyponatremia; J45.901 Unspecified asthma with (acute) exacerbation; I10 Essential (primary) hypertension; M81.0 Age-related osteoporosis without current pathological fracture; E78.00 Pure hypercholesterolemia, unspecified; R73.03 Prediabetes; E87.6 Hypokalemia
CPT/HCPCS: 36415; 71045; 80048; 80053; 82962; 83036; 83735; 85025; 94640; 94664; J1815; J7620; J8499